=== PATIENT | female | born 1935 | race Caucasian/White ===

== ENCOUNTER 2016-05-11 10:11 | Outpatient (CLI) | payer OTHER ==
--- NOTE | 2016-05-11 10:58 | DIAGNOSTIC IMAGING REPORT ---
PROCEDURE: DEXA BONE DENSITY STUDY CLINICAL INDICATION: OSTEOPENIA COMPARISON: None. FINDINGS: LUMBAR SPINE: Bone mineral density 0.706 g/cm2, T score -3.1 osteoporosis LEFT HIP: Bone mineral density 0.741 g/cm2, T score -1.7 osteopenia LEFT FEMORAL NECK: Bone mineral density 0.509 g/cm2, T score -3.1 osteoporosis FRACTURE RISK CALCULATION ( when applicable): 10-year fracture risk of a major osteoporotic fracture and of a hip fracture not reported because some T-score at or below -2.5 (T score greater or equal to -1.0 to: NORMAL) (T score from -1.1 to -2.4: OSTEOPENIA) (T score ess than or equal to -2.5: OSTEOPOROSIS) IMPRESSION: 1. Osteoporosis lumbar spine and femoral neck. Osteopenia left hip
== END 2016-05-11 23:00 ==
LOC: XR SRH 10:11
DX: M85.80 Other specified disorders of bone density and structure, unspecified site (principal); M81.8 Other osteoporosis without current pathological fracture